=== PATIENT | male | born 1960 | race Caucasian/White ===

== ENCOUNTER 2019-11-18 09:51 | Outpatient (CLI) | payer OTHER ==
--- NOTE | 2019-11-19 07:59 | ULT ---
LEFT ANTERIOR THIGH ULTRASOUND: 11/18/2019 HISTORY/TECHNIQUE: Selected images through an area of interest in the left anterior thigh were provided. FINDINGS: No mass or cyst or other worrisome soft tissue abnormality is found. There seems to be a trace of flu id in the suprapatellar region. IMPRESSION: No acute soft tissue abnormality seen. POS: [facility]
== END 2019-11-18 09:52 | disposition home or self-care (01) ==
LOC: BURULT 09:51
PROVIDERS: ATTEND Family Medicine
DX: R22.42 Localized swelling, mass and lump, left lower limb (principal)
CPT/HCPCS: 76999